=== PATIENT | male | born 1955 | race Caucasian/White ===

== ENCOUNTER 2017-06-27 09:26 | Emergency (ER) | payer OTHER ==
[2017-06-27 09:34] VITALS: TEMP 98.2; BMI 34.7
--- NOTE | 2017-06-27 09:55 | PDOC ---
History of Present Illness - General Chief Complaint: Wound Stated Complaint: WOUND INFECTION Time Seen by Provider: 06/27/17 09:45 - History of Present Illness Initial Comments: 06/27/17 09:58 Patient is a 61-year-old male with past medical history of IDDM, HTN, HLD, COPD who presents to the emergency department today complaining of right foot pain. Patient states that he has had an ulcer on his right foot for approximately 3 months. He is been treated for this ulcer back in [place]. He has been treated with IV abx in the past. Patient states that approximately 2 days ago he noticed pain in his right foot with increasing, very much like when it was infected approximately 3 months ago. He was concerned that the pain was not getting better and he might have another infection so he presents to the emergency department. Admits to some diabetic neuropathy, drainage from the site , right foot pain. Denies fevers, chills, nausea, vomiting, gait changes, fatigue. Past History - Travel Traveled outside of the country in the last 30 days: No Close contact w/someone who was outside of country & ill: No - Past Medical History Allergies/Adverse Reactions: Allergies Allergy/AdvReac Type Severity Reaction Status Date / Time No Known Allergies Allergy Verified 06/27/17 09:34 Home Medications: Ambulatory Orders Amlodipine Besylate 10 mg PO DAILY 06/27/17 Aspirin [ASA -] 81 mg PO DAILY 06/27/17 Atorvastatin Ca [Lipitor] 20 mg PO HS 06/27/17 Bumetanide [Bumex -] 2 mg PO DAILY 06/27/17 Cephalexin Monohydrate [Keflex -] 500 mg PO Q6H #28 capsule 06/27/17 Duloxetine HCl [Cymbalta -] 60 mg PO BID 06/27/17 Fluticasone/Salmeterol [Advair 250-50 Diskus] 1 each IH BID 06/27/17 Gabapentin 600 mg PO BID 06/27/17 Glipizide [Glipizide ER] 10 mg PO BID 06/27/17 Insulin Glargine,Hum.rec.anlog [Lantus (nf)] 28 units SQ HS 06/27/17 Losartan Potassium 100 mg PO DAILY 06/27/17 Metformin HCl [Metformin HCl ER] 1,000 mg PO BID 06/27/17 Nitroglycerin [Nitrostat] 0.4 mg SL DAILY PRN 06/27/17 Oxycodone HCl/Acetaminophen [Percocet 5-325 mg Tablet] 1 tab PO Q6H #10 tablet MDD 4 06/27/17 Sulfamethoxazole/Trimethoprim [Bactrim Ds -] 1 tab PO BID #14 tablet 06/27/17 COPD: Yes Diabetes: Yes HTN: Yes - Suicide/Smoking/Psychosocial Hx Smoking History: Never smoked Information on smoking cessation initiated: No Hx Alcohol Use: No Drug/Substance Use Hx: No Substance Use Type: None Review of Systems - Review of Systems Able to Perform ROS?: Yes Comments:: 06/27/17 10:10 CONSTITUTIONAL: Absent: fever, chills, diaphoresis, generalized weakness, malaise, loss of appetite HEENT: Absent: rhinorrhea, nasal congestion, throat pain, throat swelling, difficulty swallowing, mouth swelling, ear pain, eye pain, visual Changes CARDIOVASCULAR: Absent: chest pain, loss of consciousness, palpitations, irregular heart rate, peripheral edema RESPIRATORY: Absent: cough, shortness of breath, dyspnea with exertion, orthopnea, wheezing, stridor, hemoptysis GASTROINTESTINAL: Absent: abdominal pain, abdominal distension, nausea, vomiting, diarrhea, constipation, melena, hematochezia GENITOURINARY: Absent: dysuria, frequency, urgency, hesitancy, hematuria, flank pain, genital pain MUSCULOSKELETAL: Absent: myalgia, arthralgia, joint swelling SKIN: Present: R foot ulcer. Absent: rash, itching, pallor HEMATOLOGIC/IMMUNOLOGIC: Absent: easy bleeding, easy bruising, lymphadenopathy, frequent infections ENDOCRINE: Absent: unexplained weight gain, unexplained weight loss, heat intolerance, cold intolerance NEUROLOGIC: Absent: headache, focal weakness or paresthesias, dizziness, unsteady gait, seizure, mental status changes, bladder or bowel incontinence PSYCHIATRIC: Absent: anxiety, depression, suicidal or homicidal ideation, hallucinations. Is the patient limited Spanish proficient: No *Physical Exam - Vital Signs Last Vital Signs Temp Pulse Resp BP Pulse Ox 98.2 F 93 H 19 147/77 98 06/27/17 09:31 06/27/17 09:31 06/27/17 09:31 06/27/17 09:31 06/27/17 09:31 - Physical Exam Comments: 06/27/17 10:13 GENERAL: Well developed, well nourished. Awake and alert. No acute distress. HEENT: Normocephalic, atraumatic. PERRLA, EOMI. No conjunctival pallor. Sclera are non- icteric. Moist mucous membranes. Oropharynx is clear. NECK: Supple. Full ROM. No JVD. Carotid pulses 2+ and symmetric, without bruits. No thyromegaly. No lymphadenopathy. CARDIOVASCULAR: Regular rate and rhythm. No murmurs, rubs, or gallops. Distal pulses are 2+ and symmetric. PULMONARY: No evidence of respiratory distress. Lungs clear to auscultation bilaterally. No wheezing, rales or rhonchi. ABDOMINAL: Soft. Non-tender. Non-distended. No rebound or guarding. No organomegaly. Normoactive bowel sounds. MUSCULOSKELETAL Normal range of motion at all joints. No bony deformities or tenderness. No CVA tenderness. EXTREMITIES: 1+ DP, PT pulses b/l. No cyanosis. No clubbing. No edema. No calf tenderness. SKIN: Stage II diabetic foot ulcer, R lateral palmar foot approx. 1cm x 1cm round with granulation tissue in the center. No obvious drainage. 1 cm redness around the cite. Warm and dry. Normal capillary refill. No jaundice. NEUROLOGICAL: Alert, awake, appropriate. Cranial nerves 2-12 intact. No deficits to light touch and temperature in face, upper extremities and lower extremities. No motor deficits in the in face, upper extremities and lower extremities. Normoreflexic in the upper and lower extremities. Normal speech. Toes are down- going bilaterally. Gait is normal without ataxia. PSYCHIATRIC: Cooperative. Good eye contact. Appropriate mood and affect. ED Treatment Course - LABORATORY CBC & Chemistry Diagram: 06/27/17 10:20 06/27/17 10:20 Medical Decision Making - Medical Decision Making 06/27/17 10:57 Patient is a 61-year-old male past medical history COPD, IDDM, HTN, HLD who presents emergency department with 2 days of foot pain due to his diabetic foot ulcer. On exam the wound itself does not have any drainage. There is a slight area of redness surrounding the ulcer. The ulcer is also painful to the touch. We will obtain basic labs, x-ray to evaluate the ulcer at this time. 1.CBC, CMP, UA, UC, PT/INR, blood cultures 2.foot x-ray 3.IV fluids, Toradol 4.reevaluate 06/27/17 12:27 WBC appears normal at this time however given the redness that is starting surrounding the foot we'll start IV antibiotics at this time. We'll start vancomycin and Zosyn. We will be able to discharge patient home once antibiotics are finished. We will give prescription for oral antibiotics. Patient states that he still has pain in his foot and would like something else for pain. We'll give one Percocet at this time. X-Ray: appears unremarkable for fracture, bone destruction, or air in the tissue. 06/27/17 15:00 Patient feels much better with Percocet, IV antibiotics. We'll discharge home at this time. VVS, afebrile. 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 Pt. was prescribed abx and percocet for pain. Pt informed that he should not drive after taking this medication as it may make him sleepy. *DC/Admit/Observation/Transfer Diagnosis at time of Disposition: Diabetic foot ulcer Qualifiers: Diabetic foot ulcer location: unspecified part of foot Diabetes mellitus type: type 2 Laterality: right Non-pressure ulcer stage: limited to breakdown of skin Qualified Code(s): E11.621 - Type 2 diabetes mellitus with foot ulcer - Discharge Dispostion Disposition: HOME Condition at time of disposition: Good Admit: No - Prescriptions Prescriptions: Sulfamethoxazole/Trimethoprim [Bactrim Ds -] 1 tab PO BID #14 tablet Cephalexin Monohydrate [Keflex -] 500 mg PO Q6H #28 capsule Oxycodone HCl/Acetaminophen [Percocet 5-325 mg Tablet] 1 tab PO Q6H #10 tablet MDD 4 - Patient Instructions Printed Discharge Instructions: DI for Diabetic Foot Ulcer Additional Instructions: You have a diabetic foot ulcer on your right foot. It appears to be at the beginning stages of infection. Your given IV antibiotics today in the emergency department. Your also prescribed oral antibiotics to take when you go home. Please take the prescriptions as prescribed and finish the prescription even if you feel better. Keep the ulcer clean and wear good supportive/protective shoes. Follow-up with her primary care doctor and nut sorter operator when you returned to [place]. Call your primary care doctor tomorrow. Return to the emergency department if you have worsening pain, fevers, chills, nausea, difficulty walking, or any changes in your symptoms.
[2017-06-27] MEDS ORDERED: KETOROLAC TROMETHAMINE 30 MG/1 ML VIAL IVPUSH ONE (10:14)
[2017-06-27] MEDS ORDERED: KETOROLAC TROMETHAMINE 30 MG/1 ML VIAL ONE (10:32)
[2017-06-27 10:33] LABS: BASOPHIL 0.9 % (0-2.0); EOSINOPHIL 0.9 % (0-4.5); MCH 31.7 pg (25.7-33.7); MCHC 34.7 g/dl (32.0-35.9); MEAN CELL VOLUME 91.5 fl (80-96); MEAN PLT VOLUME 8.1 fl (7.5-11.1); NEUTROPHILS 66.8 % (42.8-82.8); PLATELET COUNT 191 K/MM3 (134-434); RDW 13.6 % (11.9-15.9); WHITE BLOOD COUNT 6.8 K/mm3 (4.0-10.0)
[2017-06-27 10:51] LABS: URINE APPEARANCE CLEAR; URINE BILIRUBIN NEGATIVE (NEGATIVE); URINE BLOOD NEGATIVE (NEGATIVE); URINE COLOR YELLOW; URINE GLUCOSE (UA) 3+ (NEGATIVE); URINE KETONE NEGATIVE (NEGATIVE); URINE NITRITE NEGATIVE (NEGATIVE); URINE UROBILINOGEN NEGATIVE mg/dL (0.2-1.0)
[2017-06-27 10:58] LABS: URINE PROTEIN 1+ (NEGATIVE)
[2017-06-27 10:59] LABS: ALBUMIN 3.7 g/dl (3.4-5.0); ANION GAP 7 (8-16); BILIRUBIN,TOTAL 0.4 mg/dL (0.2-1.0); CALCIUM 8.9 mg/dL (8.5-10.1); CO2 29 mmol/L (21-32); CREATININE 0.8 mg/dL (0.7-1.3); GLUCOSE,RANDOM 233 mg/dL (74-106); MAGNESIUM 1.9 mg/dL (1.8-2.4); PHOSPHOROUS 3.1 mg/dL (2.5-4.9); SGOT/AST 41 U/L (15-37); SGPT/ALT 57 U/L (12-78); TOT PROT 7.2 g/dl (6.4-8.2); URINE MUCUS RARE; URINE RBC NONE SEEN /hpf (0-3); URINE WBC <1 /hpf (3-5)
[2017-06-27 11:00] LABS: ALK PHOS 79 U/L (45-117); INR 0.96 (0.82-1.09); PROTHROMBIN TIME (PATIENT) 10.9 SEC (9.98-11.88)
[2017-06-27] MEDS ORDERED: VANCOMYCIN 1,000 MG in DEXTROSE 5%-WATER - 250 ML IVPB ONE (11:40)
[2017-06-27] MEDS ORDERED: PIPERACIL/TAZOB 3.375 GM 3.375 GM/50 ML PREMIX IVPB ONE (11:41)
[2017-06-27] MEDS ORDERED: PIPERACILLIN/TAZOB 3.375 GM 50 ML IVPB ONE (12:09)
[2017-06-27] MEDS ORDERED: VANCOMYCIN 1 GRAM (PRE-DOCKED) 250 ML IVPB ONE (12:09)
[2017-06-27 14:46] VITALS: BP 117/62; PULSE 80
[2017-06-27 20:03] LABS: URINE LEUK ESTERASE Negative (NEGATIVE)
== END 2017-06-27 15:15 | disposition home or self-care (01) ==
LOC: JER 09:26
DX: E11.621 Type 2 diabetes mellitus with foot ulcer (principal); L89.892 Pressure ulcer of other site, stage 2
CPT/HCPCS: 36415; 73630-TC-RT; 80053; 81003; 81015; 83735; 84100; 85025; 85610; 87040; 87070; 87077; 87086; 87186; 87205; 96365; 99283-25